=== PATIENT | male | born 1950 | race Caucasian/White ===

== ENCOUNTER → 2017-02-09 | Outpatient (CLI) | payer MEDICARE ==
[2017-02-09 10:18] LABS: ALBUMIN 3.9 G/DL (3.5-5.0); ALKALINE PHOSPHATASE 87 U/L (38-126); ALT (SGPT) 44 U/L (21-72); ANION GAP 11 MEQ/L (5-15); AST (SGOT) 28 U/L (17-59); BUN/CREATININE RATIO 11 RATIO (6-26); CALCIUM 9.6 MG/DL (8.4-10.2); CHLORIDE 96 MEQ/L (98-107); CO2 - CARBON DIOXIDE 27 MEQ/L (22-30); GLOMERULAR FILTRATION RATE 75; GLUCOSE 105 MG/DL (75-110); POTASSIUM 4.6 MEQ/L (3.6-5); SODIUM 134 MEQ/L (134-144); TOTAL PROTEIN 7.8 G/DL (6.3-8.2)
== END ==
LOC: LAB 09:39
PROVIDERS: ATTEND Urology
DX: N28.89 Other specified disorders of kidney and ureter (principal)
CPT/HCPCS: 36415; 80048; 80076

== ENCOUNTER → 2017-02-24 | Outpatient (CLI) | payer MEDICARE ==
[2017-02-24 16:39] LABS: ALBUMIN 3.9 G/DL (3.5-5.0); ALBUMIN/GLOBULIN RATIO 1.1 RATIO (1.1-2.2); ALKALINE PHOSPHATASE 100 U/L (38-126); ALT (SGPT) 83 U/L (21-72); ANION GAP 13 MEQ/L (5-15); AST (SGOT) 34 U/L (17-59); BUN/CREATININE RATIO 18 RATIO (6-26); CALCIUM 9.3 MG/DL (8.4-10.2); CHLORIDE 99 MEQ/L (98-107); CO2 - CARBON DIOXIDE 22 MEQ/L (22-30); CREATININE 0.8 MG/DL (0.8-1.5); GLOMERULAR FILTRATION RATE 97; GLUCOSE 151 MG/DL (75-110); POTASSIUM 5.4 MEQ/L (3.6-5); SODIUM 134 MEQ/L (134-144); TOTAL PROTEIN 7.3 G/DL (6.3-8.2)
== END ==
LOC: LABN 16:17
PROVIDERS: ATTEND Internal Medicine Hematology & Oncology
DX: C65.9 Malignant neoplasm of unspecified renal pelvis (principal)
CPT/HCPCS: 80053

== ENCOUNTER 2017-10-15 10:49 | Observation (INO) ==
[2017-10-15] MEDS ORDERED: NS 1,000 ML IV ONE ×2 (11:15→11:18)
--- NOTE | 2017-10-15 11:24 | Emergency Department Report ---
Weakness HPI - General Chief complaint: Weakness Stated complaint: LBP Time Seen by Provider: 10/15/17 11:14 Source: patient, family Mode of arrival: ambulatory Limitations: no limitations - History of Present Illness HPI Narrative: Patient presents from the [facility]fusion [facility] where he went to get his granix injection. Patient has a history of renal cell carcinoma and has previously been on chemotherapy and is due to start chemotherapy again however this has been detained due to low white blood cell count and platelet count. She has recently received platelet transfusion in the past couple weeks. Patient scribe's generalized weakness at baseline however the past 24-48 hours states the weakness has been worse. Blood pressure when he presented to the infusion center today with systolic blood pressure of 79. Blood pressure upon arrival here was 109 systolically however shortly dropped down to the low 80s. Patient states normal blood pressure for him is around 120s systolically. Pt denies fevers or chills. He does have somewhat of a chronic cough per his report MD Complaint: generalized weakness Onset (ago): day(s) Duration: constant Location: generalized Relieving factors: rest Context: other (history of renal cell carcinoma, recent chemotherapy and currently receiving granix injections ) Associated symptoms: loss of appetite - Related Data Home Medications Medication Instructions Recorded Confirmed Atorvastatin [Lipitor] 40 mg PO HS 06/14/17 10/15/17 Lisinopril [Prinivil] 10 mg PO DAILY 06/14/17 10/15/17 Ascorbic Acid [Vitamin C] 500 mg PO DAILY 07/12/17 10/15/17 Acetaminophen [Acetaminophen Extra 1,000 mg PO Q6H PRN 10/15/17 10/15/17 Strength] Aspirin *EC* [Ecotrin] 81 mg PO DAILY 10/15/17 10/15/17 Clopidogrel [Plavix] 75 mg PO DAILY 10/15/17 10/15/17 Magnesium Oxide [Magnesium] 400 mg PO DAILY 10/15/17 10/15/17 Oxycodone *IR* [Roxicodone *Ir*] 10 mg PO Q6H PRN 10/15/17 10/15/17 Previous Rx's Medication Instructions Recorded Ferrous Sulfate [Feosol] 324 mg PO WB #30 tab 05/03/17 Pantoprazole Tab [Protonix Tab] 40 mg PO ACB #30 tab 05/03/17 Allergies Allergy/AdvReac Type Severity Reaction Status Date / Time No Known Drug Allergies Allergy Verified 10/15/17 11:01 Review of Systems All systems: reviewed and negative except as stated Constitutional: Reports: as per HPI, weakness, weight change. Denies: fever, chills Eyes: Denies: eye pain, eye discharge ENT: Denies: ear pain, throat pain Cardiovascular: Denies: chest pain, palpitations, orthopnea, edema, syncope Respiratory: Reports: cough, other (states coughing but not anymore than usual; Patient is coughing at time of exam and cough does feel ) Gastrointestinal: Denies: abdominal pain, nausea, vomiting, diarrhea Genitourinary: Denies: urgency, dysuria Musculoskeletal: Reports: back pain (chronic but controlled at this time) Integumentary: Denies: changing lesions, jaundice Neurological: Reports: as per HPI, weakness (generalized). Denies: headache Psychiatric: Reports: other (withdrawn) PFSH Patient Stated Medical History Transient Ischemic Attacks ( Yes: STROKE TIA) Cataracts Yes Cardiac Arrhythmia Yes Hypertension Yes Other Cardiology Yes: Endarterectomy 07/2017 Chronic Obstructive Pulmonary Yes Disease (COPD) Sleep Apnea Yes Gastroesophageal Reflux Yes Disease Hx Renal Disease Yes: RENAL CELL CARCIMONA, Rt kidney removed Other Yes: cancer, kidney stent, kidney removed 07/26 Chemotherapy Yes Other Yes: no chest pain in past 6 months no MH Surgical History: Cataract Sx. Power port placement - Social History Smoking status: Current every day smoker Physical Exam - Limitations Limitations: no limitations - General General appearance: alert, in no apparent distress, other (appears withdrawn and generalized weakness) - Normal Exams: Head:: Normocephalic without trauma Eyes:: No scleral icterus ENMT:: No facial trauma, nasal exudates, pharyngeal erythema, or exudates are noted Cardiovascular:: Regular rate and rhythm, without murmur or gallop, Pulses 2+ all extremities, capillary refill Abdomen:: Bowel sounds positive, soft, non-tender, non-distended Musculoskeletal:: No tenderness, or deformity noted, good range of motion Integumentary:: No rashes, hives Neurological:: Patient is alert, and oriented, cranial nerves - Expanded Respiratory Exam Location: Left: decreased breath sounds, Right: decreased breath sounds Course - Reevaluation(s) Reevaluation #1: Patient's blood pressures after a liter of normal saline are as follows, supine 85/51 with heart rate of 70; sitting 94/50 with heart rate of 74 and standing 82 /48 with heart rate of 92 and patient was symptomatic complaining of being lightheaded, Patient's white blood cells had improved from October 13 with white blood cells from 3.3-14.7, hemoglobin has dropped slightly from 7.4-6.6 and platelets have improved from 13-27. Patient does have a low magnesium at 0.7; 1 g magnesium sulfate started. I did page Dr Carson who is on for Dr Dinh and he agrees that patient will benefit from observation due to remaining symptomatic after IVF. Patient however does not want to stay. I will discuss this with his sister who brought him here when she returns. - Consultations Consultation #1: paged; paged returned by Dr Carson. Report given ; he feels patient would benefit from observation status for rehydration and r/o sepsis; venous lactate drawn was 2.1. I did not drawn cultures or procalcitonin. Time: 12:38 Vital Signs Temperature 98 F 10/15/17 10:50 Pulse Rate 83 10/15/17 10:50 Respiratory Rate 20 10/15/17 10:50 Blood Pressure 109/54 10/15/17 10:50 Pulse Oximetry 100 10/15/17 10:50 Temperature 98 F 10/15/17 10:50 Pulse Rate 92 10/15/17 12:28 Respiratory Rate 20 10/15/17 10:50 Blood Pressure 82/48 10/15/17 12:28 Pulse Oximetry 100 10/15/17 10:50 Weakness - [facility] Narrative Medical decision making narrative: She remains symptomatic after 1 L IV fluids. Myoglobin is also down slightly to 6.6. Patient would likely benefit from observation to rehydrate and possibly transfused. She initially does not want to stay however does agree for admission. - Differential Diagnosis Differential diagnosis: Likely: anemia, sepsis, dehydration - Medical Records Attestation: I reviewed the patient's medical records. - Lab Data Attestation: I reviewed the patient's lab results. Result diagrams: 10/15/17 11:27 10/15/17 11:27 Lab Results 10/15/17 10/15/17 10/15/17 Range/Units 11:27 11:27 11:27 WBC 14.7 H D (4.5-11.0) T/MM3 RBC 2.01 L (4.50-5.90) M/MM3 Hgb 6.6 L (13.5-17.5) GM/DL Hct 20.0 L D (41-53) % MCV 99.5 (80-100) UM3 MCH 32.8 (26-34) UUG MCHC 33.0 (31-37) GM/DL RDW Std Deviation 44.0 (36.9-50.2) FL Plt Count 27 L* D (130-400) T/MM3 MPV 10.2 (9.4-12.4) UM3 Immature Gran % (Auto) Not performed Neut % (Auto) Not performed Lymph % (Auto) Not performed Page % (Auto) Not performed Eos % (Auto) Not performed Baso % (Auto) Not performed Neut # (Auto) Not performed Lymph # (Auto) Not performed Page # (Auto) Not performed Eos # (Auto) Not performed Baso # (Auto) Not performed Abs Immat Gran (auto) Not performed Neutrophils % (Manual) 47.0 (33-66) % Band Neutrophils % 13.0 H D (0-6) % Lymphocytes % (Manual) 28.0 (23-45) % Reactive Lymphs % 1.0 H (0-0) % Monocytes % (Manual) 7.0 (0-9.0) % Eosinophils % (Manual) 2.0 (0-4) % Metamyelocytes % 2.0 H (0-0) % Neutrophils # (Manual) 6.9 (1.8-7.7) T/MM3 Band Neutrophils # 1.9 T/MM3 Lymphocytes # (Manual) 4.1 (1-4.8) T/MM3 Abs React Lymphs (Man) 0.1 H (0-0) T/MM3 Monocytes # (Manual) 1.0 H (0-0.8) T/MM3 Eosinophils # (Manual) 0.3 (0-0.5) T/MM3 Metamyelocytes # 0.3 T/MM3 RBC Morph Comment Normal Turbidity < 20 (0-20) Sodium 141 (134-144) MEQ/L Potassium 4.5 (3.6-5) MEQ/L Chloride 107 (98-107) MEQ/L Carbon Dioxide 25 (22-30) MEQ/L Anion Gap 9 (5-15) MEQ/L BUN 21.0 H (9-20) MG/DL Creatinine 1.4 (0.8-1.5) MG/DL GFR Calculation 51 BUN/Creatinine Ratio 15 (6-26) RATIO Glucose 78 (75-110) MG/DL Calculated Osmolality 273 (261-280) MOSM/KG Calcium 7.9 L (8.4-10.2) MG/DL Magnesium 0.7 L (1.6-2.3) MG/DL Total Bilirubin < 0.10 L (0.20-1.30) MG/DL Icterus Index < 2 (0-7) AST 28 (17-59) U/L ALT 38 (21-72) U/L Alkaline Phosphatase 59 (38-126) U/L Troponin I < 0.012 (0-0.12) ng/ml Total Protein 7.0 (6.3-8.2) G/DL Albumin 3.6 (3.5-5.0) G/DL Globulin 3.4 (2.4-3.6) G/DL Albumin/Globulin Ratio 1.1 (1.1-2.2) RATIO Plasma Lactate 2.1 (0.6-2.2) MMOL/L Specimen Hemolysis < 15 (0-25) - Radiology Data Attestation: I reviewed the patient's radiology results. Disposition Clinical Impression: Hypomagnesemia Anemia Qualifiers: Anemia type: other cause Hypotension Qualifiers: Hypotension type: unspecified hypotension type Qualified Code(s): I95.9 - Hypotension, unspecified Disposition: [facility] [place] Condition: Stable Prescriptions: No Action Pantoprazole Tab [Protonix Tab] 40 mg PO ACB #30 tab Ferrous Sulfate [Feosol] 324 mg PO WB #30 tab Lisinopril [Prinivil] 10 mg PO DAILY Atorvastatin [Lipitor] 40 mg PO HS Oxycodone *IR* [Roxicodone *Ir*] 10 mg PO Q6H PRN PRN Reason: Pain Magnesium Oxide [Magnesium] 400 mg PO DAILY Clopidogrel [Plavix] 75 mg PO DAILY Acetaminophen [Acetaminophen Extra Strength] 1,000 mg PO Q6H PRN PRN Reason: Pain Aspirin *EC* [Ecotrin] 81 mg PO DAILY Ascorbic Acid [Vitamin C] 500 mg PO DAILY Referrals: Angus Damico DO [Family Provider] - Time of Disposition: 13:09 - Seen By: maria del rosariolevel
[2017-10-15] MEDS ORDERED: MAGNESIUM SULFATE 1gm PREMIX 1 GM/100 ML BAG IV ONE (12:28)
[2017-10-15] MEDS ORDERED: NS FLUSH BAG 500ml IV PRN (13:58)
[2017-10-15 14:20] VITALS: BMI 20.6
--- NOTE | 2017-10-15 14:21 | History & Physical Report ---
History of Present Illness Date: 10/15/17 Chief complaint: anemia, hypertension HPI: Patient is a 67 yr old male who presented to [facility] outpatient infusion today for scheduled Granix injection under the care of Dr Dinh. Prior to the injection routine vital signs were obtained. Patient was found to be hypotensive with a systolic blood pressure in the 70s. He has reported feeling dizzy and lightheaded at this time and Oncologist was notified. He in recommended been evaluated acutely in the emergency room. Patient was admitted to [facility] ER for further evaluation. Blood pressure dropped to 79 /51, patient was given IV fluids and basic labs were obtained. WBC was found to be elevated at 14.7, RBCs 2.01, hemoglobin 6.6, hematocrit 20, platelet count 27. Chemistry panel unremarkable. Magnesium was found to be low at 0.7, troponin negative, venous lactate normal at 2.1. Chest x-ray was unremarkable. Despite IV hydration, patient continued to be hypotensive with symptoms of dizziness when standing. The hospitalist services were contacted and accepted patient for outpatient observation admission for further evaluation and treatment. Patient is examined while still in the emergency room. He is alert, oriented and pleasant. His DPOA, sister is at the bedside and gives the majority of the collateral history. Patient has been under the care of Dr. Dinh for renal cell carcinoma. She reports that he was seen at his office 2 days ago on and was feeling fine, however, noticed yesterday. He complained of dizziness with ambulation. He is routinely and of the primary care of Dr. Angus Damico in [place], [place]. We did discuss advanced directives and he does wish to be a full code Review of Systems - Constitutional Constitutional: Present: fatigue Comments: Lightheadedness with position changes Past Medical History Carotid stenosis Atherosclerosis of bilateral lower extremities History of TIA Hypertension hx- Renal cell carcinoma Hiatal hernia COPD Anemia and neutropenia Nicotine dependence Surgical History: Cataract Sx. Power port placement. Stent of the right SFA and proximal right popliteal artery-08/2017 ([facility]). Carotid endarterectomy- July 2017. Nephrectomy-right 07/2017 Family History Updates: Mother-atrial fibrillation-alive at age 94. Father- dimension. Brother with [place]. Sister alive and well - Social History Smoking status: Current every day smoker Substance use type: does not use Alcohol intake: former Housing: house Social history: Patient resides independently in [place], [place]. His sister Ashley Rey is his DPOA. Primary care provider, Dr. Angus Damico ([place]) [employer] [facility]. [place] Oncologist Dr. Dinh Medications Home Medications Medication Instructions Recorded Confirmed Type Atorvastatin [Lipitor] 40 mg PO HS 06/14/17 10/15/17 History Lisinopril [Prinivil] 10 mg PO DAILY 06/14/17 10/15/17 History Ascorbic Acid [Vitamin C] 500 mg PO DAILY 07/12/17 10/15/17 History Acetaminophen [Acetaminophen Extra 1,000 mg PO Q6H PRN 10/15/17 10/15/17 History Strength] Aspirin *EC* [Ecotrin] 81 mg PO DAILY 10/15/17 10/15/17 History Clopidogrel [Plavix] 75 mg PO DAILY 10/15/17 10/15/17 History Magnesium Oxide [Magnesium] 400 mg PO DAILY 10/15/17 10/15/17 History Oxycodone *IR* [Roxicodone *Ir*] 10 mg PO Q6H PRN 10/15/17 10/15/17 History Allergies Allergy/AdvReac Type Severity Reaction Status Date / Time No Known Drug Allergies Allergy Verified 10/15/17 11:01 Exam Vital Signs: Temperature 98 F 10/15/17 10:50 Pulse Rate 69 10/15/17 13:15 Respiratory Rate 18 10/15/17 13:15 Blood Pressure 85/50 10/15/17 13:15 Pulse Oximetry 98 10/15/17 13:15 - Constitutional Present: no acute distress, well nourished, well developed - Routine HEENT Exam Eye: Present: EOMI ENT: Present: mucous membranes moist, dentition normal - Routine Respiratory Exam Present: CTA bilaterally. Absent: wheezes - Routine Cardiovascular Exam Present: RRR, S1, S2. Absent: murmur - Routine Abdominal Exam Present: soft, normoactive bowel sounds, non distended. Absent: tenderness - Routine Extremities Exam Present: edema (trace bilateral lower extremity edema), normal capillary refill - Routine Skin Exam Present: dry, warm - Routine Neurological Exam Present: alert, oriented X3, CN II-XII intact, moving all extremities - Routine Psychiatric Exam Present: normal affect, cooperative Results - Labs CBC & Chem 7: 10/15/17 11:27 10/15/17 11:27 Assessment and Plan (1) Hypotension Current visit: Yes Status: Acute (2) Anemia Problem details: Iron studies pending. Iron 325mg daily w/vitamin C rx'd. Recommend f/u with PCP. Current visit: Yes Status: Acute Assessment and Plan: Impression Symptomatic Hypotension Anemia- Hgb on admission 6.6 Hypomagnesemia- POA Chronic Thrombocytopenia- PLT 27 on admission Hx of Neutropenia Hypertension History of renal cell carcinoma COPD Vascular disease GERD Tobacco dependence Plan Although patient is somewhat hesitant to stay. He does agree to observation admission for further medical evaluation and treatment. Given orthostasis and anemia. Receive 1 liter of normal saline while in the emergency room. We will continue with NS at 100 ml/hr Patient also received 1 dose of IV magnesium. Will continue with 4gm IV infusion. Recheck later this evening. Will also add 400 PO BID Type, screen and cross match 1 unit of irradiated packed red blood cells. Will give 1 unit 1 now. Check hemoglobin later this evening. ANC is over 8000 which does not revel neutropenia Will hold home BP medications- given hypotension May have home oxycodone as needed for pain Obtain UA for laboratory completeness SCDs to bilateral lower extremity for DVT prophylaxis Does request to be a full code this orders written At time of discharge medical care is to return to PCP Dr Damico (in [place]) Did discuss Granix injection with pharmacist and attending. Patient does request to have this as it was not given at the infusion center earlier today. Will monitor labs can consider ordering tomorrow prior to discharge. DVT Prophylaxis: SCD's Resuscitation Status: Full Code - Physician Narrative Physician: Paul Rose MD Narrative: Date: 10/15/17 Time: 1520 I have independently interviewed and examined pt. Chart reviewed. Case discussed with [employer]. Care plan developed with my supervision; agree with above. Patient noted to be hypotensive when he presented for Granix injection. Still hypotensive in ER after 1 L of IVF. He also got 1 g of Mg for a Mg of 0.7. Patient denies f/c, n/v/d, cp, soa, cough, dysuria. He says he eats OK, but ER says his sister questions that. Lungs: diminished breath sounds, no use of accessory muscles. CV: regular ABD: s/nt/nd EXT: 1+ edema. MSE: somnolent Plan: Place in observation status. 1L NS. Transfuse 4g Mg and recheck Hold lisinopril and might need dose reduced. Monitor leukocytosis - no complaints suggestive of infection. SCDs for DVT ppx Hospital Course Summary Disclaimer: The visit summary below is not to be considered part of the above Progress Note. Hospital Course: Impression Symptomatic Hypotension Anemia- Hgb on admission 6.6 Hypomagnesemia- POA Chronic Thrombocytopenia- PLT 27 on admission Hx of Neutropenia Hypertension History of renal cell carcinoma COPD Vascular disease GERD Tobacco dependence Plan Although patient is somewhat hesitant to stay. He does agree to observation admission for further medical evaluation and treatment. Given orthostasis and anemia. Receive 1 liter of normal saline while in the emergency room. We will continue with NS at 100 ml/hr Patient also received 1 dose of IV magnesium. Will continue with 4gm IV infusion. Recheck later this evening. Will also add 400 PO BID Type, screen and cross match 1 unit of irradiated packed red blood cells. Will give 1 unit 1 now. Check hemoglobin later this evening. ANC is over 8000 which does not revel neutropenia Will hold home BP medications- given hypotension May have home oxycodone as needed for pain Obtain UA for laboratory completeness SCDs to bilateral lower extremity for DVT prophylaxis Does request to be a full code this orders written At time of discharge medical care is to return to PCP Dr Damico (in [place]) Did discuss Granix injection with pharmacist and attending. Patient does request to have this as it was not given at the infusion center earlier today. Will monitor labs can consider ordering tomorrow prior to discharge.
[2017-10-15] MEDS: Oxycodone *IR* 5 MG TABLET PO PRN ×2 (14:45→19:21)
[2017-10-15] MEDS: MAGNESIUM SULFATE 1gm PREMIX 1 GM/100 ML BAG IV SCH ×4 (14:54→23:09)
[2017-10-15] MEDS ORDERED: ACETAMINOPHEN 500 MG TABLET PO PRN (15:13)
[2017-10-15] MEDS: MAGNESIUM OXIDE 400 MG TABLET PO SCH (20:38)
[2017-10-15] MEDS ORDERED: ATORVASTATIN 40 MG TABLET PO SCH (21:00)
[2017-10-16] MEDS: MAGNESIUM SULFATE 1gm PREMIX 1 GM/100 ML BAG IV SCH (00:17)
[2017-10-16 01:18] VITALS: O2SAT 95
[2017-10-16] MEDS ORDERED: PANTOPRAZOLE 40 MG TABLET PO SCH (06:30)
[2017-10-16 07:57] VITALS: BP 117/67; PULSE 71; RESP 16; TEMP 97.1
--- NOTE | 2017-10-16 08:54 | XRay Report ---
Indication: weakness PROCEDURE: XR chest 1V: Encounter: Initial Comparison: March 14, 2017 Findings: Right IJ port catheter again noted. There is a new small nodule adjacent to the port hub measuring 1.3 cm projecting over the right upper lobe. Lung kapoor are otherwise clear. No pleural effusion or pneumothorax. Heart size, pulmonary vascularity and mediastinal contours are within normal limits. Impression: No focal pneumonia or congestive failure. Possible right upper lobe pulmonary nodule. CT could be performed for further evaluation as clinically indicated. .
[2017-10-16] MEDS ORDERED: CLOPIDOGREL 75 MG TABLET PO SCH (09:00)
[2017-10-16] MEDS: MAGNESIUM OXIDE 400 MG TABLET PO SCH (10:20)
--- NOTE | 2017-10-16 14:41 | Discharge Summary ---
Discharge Information Date of admission: 10/15/17 13:34 Attending Physician: Paul Rose IV, MD Primary care physician: Angus Damico, DO - Discharge Diagnosis (1) Hypotension Status: Acute (2) Anemia Status: Acute - Laboratory Labs: 10/16/17 03:52 10/16/17 03:52 History of Present Illness HPI: Patient is a 67 yr old male who presented to [facility] outpatient infusion today for scheduled Granix injection under the care of Dr Dinh. Prior to the injection routine vital signs were obtained. Patient was found to be hypotensive with a systolic blood pressure in the 70s. He has reported feeling dizzy and lightheaded at this time and Oncologist was notified. He in recommended been evaluated acutely in the emergency room. Patient was admitted to [facility] ER for further evaluation. Blood pressure dropped to 79 /51, patient was given IV fluids and basic labs were obtained. WBC was found to be elevated at 14.7, RBCs 2.01, hemoglobin 6.6, hematocrit 20, platelet count 27. Chemistry panel unremarkable. Magnesium was found to be low at 0.7, troponin negative, venous lactate normal at 2.1. Chest x-ray was unremarkable. Despite IV hydration, patient continued to be hypotensive with symptoms of dizziness when standing. The hospitalist services were contacted and accepted patient for outpatient observation admission for further evaluation and treatment. Patient is examined while still in the emergency room. He is alert, oriented and pleasant. His DPOA, sister is at the bedside and gives the majority of the collateral history. Patient has been under the care of Dr. Dinh for renal cell carcinoma. She reports that he was seen at his office 2 days ago on and was feeling fine, however, noticed yesterday. He complained of dizziness with ambulation. He is routinely and of the primary care of Dr. Angus Damico in [place], [place]. We did discuss advanced directives and he does wish to be a full code Objective Vital signs: Temperature 97.1 F 10/16/17 07:56 Pulse Rate 71 10/16/17 07:56 Respiratory Rate 16 10/16/17 07:56 Blood Pressure 117/67 10/16/17 07:56 Pulse Oximetry 95 10/16/17 07:56 Height/Weight/BMI: Height 5 ft 10 in Weight 66.2 kg Body Mass Index 20.6 - Constitutional Present: no acute distress, mild distress - Routine HEENT Exam Head: Present: normocephalic, atraumatic Eye: Present: EOMI, PERRL - Routine Respiratory Exam Present: CTA bilaterally - Routine Cardiovascular Exam Present: RRR, no murmur - Routine Abdominal Exam Present: soft, normoactive bowel sounds, non distended, non tender - Routine Extremities Exam Present: no edema Hospital Course This is a general summary of the patient's hospital course. For more details refer to the complete medical record. Hospital course: Patient got IVF, 1 unit PRBC. BP is better today, and he has ambulated without any dizziness or lightheadedness. Hgb is 7.2. WBC is 26.9. Patient denies f/c, cough, dysuria. CXR did not indicate pneumonia. Magnesium has improved with IV supplementation. Patient says he is ready to go home. He will f/u tomorrow for his Granix injection. Discharge Plan - Discharge Disposition Disposition: Discharged Home, Self-Care *Condition: Stable Reason For Visit (Visit label in EMR): Hypotension,anemia - Discharge Medications *Discharge Medications: No Action Pantoprazole Tab [Protonix Tab] 40 mg PO ACB #30 tab Ferrous Sulfate [Feosol] 324 mg PO WB #30 tab Lisinopril [Prinivil] 10 mg PO DAILY Atorvastatin [Lipitor] 40 mg PO HS Oxycodone *IR* [Roxicodone *Ir*] 10 mg PO Q6H PRN PRN Reason: Pain Magnesium Oxide [Magnesium] 400 mg PO DAILY Clopidogrel [Plavix] 75 mg PO DAILY Acetaminophen [Acetaminophen Extra Strength] 1,000 mg PO Q6H PRN PRN Reason: Pain Aspirin *EC* [Ecotrin] 81 mg PO DAILY Ascorbic Acid [Vitamin C] 500 mg PO DAILY - Discharge Packet/Instructions *Diet: regular *Activity: as tolerated *Pain Management/Treatment: continue home regimen *Wound Care: na *Notify Physician if: lightheaded, dizzy or if fever *During Business Hours Contact: Dr. Damico or Dr. Dinh *After Business Hours Contact: hospital - Referrals/Follow Up - Patient Handouts - Dismissal Complete Discharge Instructions are:: Complete Physician Narrative - Narrative Attestation Narrative: Date: 10/16/17 Time: 1877
== END 2017-10-16 16:15 | disposition home or self-care (01) ==
LOC: ED 10:49 → MED 10:49
PROVIDERS: ADMIT Hospitalist; ATTEND Hospitalist